=== PATIENT | male | born 1965 | race Caucasian/White ===

== ENCOUNTER 2017-03-09 23:44 | Inpatient (IN) ==
[2017-03-09] MEDS ORDERED: M.V.I.-12 10 ML, FOLIC ACID 1 MG, MAGNESIUM SULFATE 1 GM, THIAMINE 100 MG in NS 1,000 ML IV ONE (23:48)
[2017-03-09] MEDS ORDERED: NS 1,000 ML IV ONE (23:48)
[2017-03-10 00:06] LABS: MANUAL DIFF NEEDED? NO
[2017-03-10 00:07] LABS: BLOOD TYPE ARTERIAL; DRAW SITE L RADIAL; METHB 1.1 % (0.0-1.5); O2(CT) 18.8 mL/dL (15.0-23.0); PCO2(98.6) 35 mmHg (35-45); SAMPLE BLOOD; SAO2 88.6 % (95.0-100.0); pH(98.6) 7.39 (7.35-7.45)
--- NOTE | 2017-03-10 00:08 | EKG Report ---
Test Performed on : 03/09/2017 11:40:43 PM Test Reason : CHEST PAIN Blood Pressure : / mmHG Vent. Rate : 109 BPM Atrial Rate : 109 BPM P-R Int : 136 ms QRS Dur : 090 ms QT Int : 342 ms P-R-T Axes : 057 035 031 degrees QTc Int : 460 ms Sinus tachycardia. Possible Left atrial enlargement Borderline ECG When compared with ECG of 09-APR-2016 13:13, ST no longer elevated in Anterior leads QT has lengthened Unconfirmed Result
[2017-03-10 00:10] LABS: PO2(98.6) 48 mmHg (60-100)
[2017-03-10 00:11] LABS: ALLEN TEST YES; MODALITY CANNULA
[2017-03-10 00:15] LABS: BASO% 0.8 % (0.0-0.8); EOS% 1.5 % (0.0-10.0); HEMATOCRIT 48.7 % (42.0-52.0); HEMOGLOBIN 17.4 g/dL (14.0-18.0); IMM GRAN# 0.11 X1000 (0.0-0.04); IMM GRAN% 0.8 % (0.0-0.5); LYMPH# 4.45 X1000 (1.2-3.4); LYMPH% 34.1 % (20.5-51.1); MCH 29.9 PG (27-31); MCHC 35.7 g/dL (33-37); MCV 83.7 FL (81-99); MONO# 0.92 X1000 (0.11-0.59); MONO% 7.1 % (1.7-9.3); MPV 9.7 FL (7.4-10.4); NEUT% 55.7 % (42.2-75.2); PLT 331 X1000 (130-400); RBC 5.82 XMIL (4.7-6.1)
[2017-03-10 00:27] LABS: INR 0.88 (0.86-1.15); PROTIME 12.3 Seconds (12.1-15.5)
[2017-03-10 00:28] LABS: PTT PL 28.9 Seconds (22.6-43.9)
[2017-03-10] MEDS ORDERED: NS 1,000 ML IV ONE ×4 (00:45→09:11)
[2017-03-10 00:59] LABS: UR AMPHETAMINES QUAL NONE DETECTED (NONE DETECT); UR BARBITUATES QUAL NONE DETECTED (NONE DETECT); UR BENZODIAZEPIN QUAL NONE DETECTED (NONE DETECT); UR CANNABINOIDS QUAL NONE DETECTED (NONE DETECT); UR COCAINE QUAL NONE DETECTED (NONE DETECT); UR MDMA QUAL NONE DETECTED (NONE DETECT); UR METHADONE QUAL NONE DETECTED (NONE DETECT); UR METHAMPHETAMINE QUAL NONE DETECTED (NONE DETECT); UR OPIATES QUAL NONE DETECTED (NONE DETECT); UR OXYCODONE QUAL NONE DETECTED (NONE DETECT); UR PCP QUAL NONE DETECTED (NONE DETECT); UR TCA QUAL NONE DETECTED (NONE DETECT)
[2017-03-10 01:16] LABS: ACETONE SERUM NEGATIVE (NEGATIVE)
[2017-03-10 01:19] LABS: AGAP 21; ALBUMIN 4.3 g/dL (3.5-5.0); ALKALINE PHOSPHATASE 133 U/L (32-122); BUN 5 mg/dL (8-22); CALCIUM 9.4 mg/dL (8.8-10.2); CHLORIDE 94 mmol/L (98-107); CK PROFILE 62 U/L (24-204); COSMO 287; GOT 15 U/L (10-34); GPT 12 U/L (10-44); MAGNESIUM 2.1 mg/dL (1.5-2.7); POTASSIUM 3.9 mmol/L (3.5-5.1); SODIUM 134 mmol/L (136-145); TCO2 19 mmol/L (25-35); TOTAL PROTEIN 6.7 g/dL (6.3-8.3)
[2017-03-10] MEDS ORDERED: HUMULIN R IV ONE (01:22)
[2017-03-10 01:24] LABS: BILIRUBIN URINE NEGATIVE (NEGATIVE); BLOOD URINE NEGATIVE (NEGATIVE); CLARITY CLEAR (CLEAR); COLOR STRAW; LEUKOCYTES URINE NEGATIVE (NEGATIVE); NITRITE URINE NEGATIVE (NEGATIVE); PROTEIN URINE NEGATIVE (NEGATIVE); UROBILINOGEN URINE NORMAL
[2017-03-10 01:25] LABS: URINE CULTURE PL NEEDED? YES; URINE EPITHELIAL CELLS <10 /HPF (<10); URINE SOURCE CLEAN CATCH; URINE WBC NS /HPF (<10)
[2017-03-10 01:57] LABS: FREE T4 1.43 ng/dL (0.93-1.70)
--- NOTE | 2017-03-10 04:28 | PROVIDER DOCUMENTATION ---
This chart was entered by Gena Deras Scribe, acting as scribe for Bernardo Velazquez DO. HPI-Chest Pain - General Chief Complaint: Chest Pain Stated Complaint: chest pain, sob Time Seen by Provider: 03/09/17 23:45 Source: patient, EMS Allergies/Adverse Reactions: Patient Allergies Allergy/AdvReac Type Severity Reaction Status Date / Time No Known Allergies Allergy Verified 10/26/16 16:20 Home Medications: Home Medication List Medication Instructions Recorded Confirmed Last Taken Type Nitroglycerin 0.4 mg SL 2-4XDAY PRN PRN #20 01/23/16 04/06/16 1 Week Ago Rx tab.subl Aspirin [Ecotrin] 81 mg PO DAILY 02/17/16 04/06/16 03/09/16 History Gabapentin 300 mg PO BID 02/17/16 04/06/16 03/09/16 History Metoprolol Succinate E.r. [Toprol 25 mg PO QHS 02/17/16 04/06/16 03/08/16 21:00 History Xl] Sitagliptin Phos/Metformin HCl 1 each PO BID #0 02/17/16 04/06/16 03/09/16 Rx [Janumet 50-1,000 mg Tablet] Atorvastatin Calcium [Lipitor] 20 mg PO QHS 03/09/16 04/06/16 02/28/16 History Oxycodone HCl/Acetaminophen 1 each PO Q6-8H PRN PRN 03/09/16 04/06/16 Unknown History [Percocet 10-325 mg Tablet] Varenicline Tartrate [Chantix] 1 mg PO DIRECTED 03/09/16 04/06/16 Unknown History Colchicine 0.6 mg PO BID 04/05/16 04/05/16 Unknown History Glimepiride 4 mg PO DAILY 04/05/16 04/05/16 Unknown History Pantoprazole [Protonix] 40 mg PO DAILY 04/05/16 04/05/16 Unknown History Orphenadrine [Norflex] 100 mg PO BID #20 tablet 10/26/16 Unknown Rx - History of Present Illness-CP Nature of Presenting Problem: 51 Y/O M presents to the ER by the EMS with the complain of Chest pain and Shortness of Breath. Pt is drunk and is diabetic. Pt has has a Hx of Cardiac problems. Location: reports: central Onset/Duration: just prior to arrival Timing: still present Associated Symptoms: reports: shortness of breath Review of Systems - Adult - REVIEW OF SYSTEMS - ADULT Constitutional: denies: chills, fever Eyes: reports: no symptoms reported Ears, Nose, Mouth & Throat: reports: no symptoms reported Cardiovascular: reports: chest pain. denies: palpitations Respiratory: reports: shortness of breath. denies: cough Gastrointestinal: reports: no symptoms reported Genitourinary: reports: no symptoms reported Musculoskeletal: reports: no symptoms reported Integumentary: reports: no symptoms reported Neurological: reports: no symptoms reported Psychiatric: reports: no symptoms reported Endocrine: reports: no symptoms reported Hematologic/Lymphatic: reports: no symptoms reported Allergic/Immunologic: reports: no symptoms reported All Other Systems: Reviewed and Negative Past History - Adult - PAST MEDICAL HISTORY-ADULT Review of Records: reports: Old Records Reviewed, Nursing Assessment Review Major Childhood Illnesses: reports: denies history Cardiovascular: reports: angina, HTN, hyperlipidemia Respiratory: reports: denies history Gastrointestinal: reports: diverticulosis Obstetrical/Gynecological: reports: denies history Genitourinary: reports: denies history Musculoskeletal: reports: chronic pain, intervertebral disc disease, neck/back injury Neurological: reports: denies history Endocrine/Immune: reports: denies history Other Conditions: reports: denies history - PRIOR SURGERIES/PROCEDURES Surgical/Procedure History: reports: orthopedic (extremity) (bilateral hip) - PRIOR HOSPITALIZATIONS Prior Hospitalizations: reports: for other non-related - IMMUNIZATION STATUS Childhood Immunizations: See Nurse Assessment Flu Vaccine: See Nurse Assessment - FAMILY HISTORY Family History: reviewed, not pertinent - SOCIAL HISTORY Smoking: cigarettes, less than 1 pack/day Provider spent 3-5 mins advising pt. on dangers of tobacco.: Discussed manners to quit use, and f/u contacts for add'l counseling. Physical Exam-General - PHYSICAL EXAM-ADULT Initial Vital Signs Reviewed: Yes - CONSTITUTIONAL General Appearance: appears well, alert - HEAD, EARS, NOSE, MOUTH & THROAT HENMT: normal ENT inspection, TMs normal - NECK Neck: non-tender, full range of motion - RESPIRATORY Respiratory: no respiratory distress, wheezing - CARDIOVASCULAR Cardiovascular: no edema, tachycardia - MUSCULOSKELETAL Back Exam: no CVA tenderness, no vertebral tenderness - SKIN Integumentary: normal color, warm/dry - NEUROLOGIC Neurologic: grossly normal, no motor/sensory deficits - PSYCHIATRIC Psych/Mental Status: normal mood/affect, oriented x 3 Progress - PLAN OF CARE/RESULTS Progress/Plan/Lab Results: Vital Signs - 8 hr 03/09/17 23:50 03/10/17 01:15 03/10/17 03:23 Temperature 97.6 F 97.6 F Pulse Rate 106 H 93 H 85 Respiratory Rate 13 26 H 20 Blood Pressure 149/86 139/81 113/66 O2 Sat by Pulse Oximetry 90 L 90 L 97 Laboratory Results - last 24 hr 03/09/17 03/09/17 03/09/17 00:00 00:00 00:00 WBC RBC Hgb Hct MCV MCH MCHC RDW Std Deviation Plt Count MPV Immature Gran % (Auto) Neut % (Auto) Lymph % (Auto) Christian % (Auto) Eos % (Auto) Baso % (Auto) Immature Gran # (Auto) Neut # (Auto) Lymph # (Auto) Christian # (Auto) Eos # (Auto) Baso # (Auto) PT INR APTT (Factor Assay) D-Dimer Specimen Type Sample Site pH pCO2 pO2 HCO3 Base Excess Oxyhemoglobin ABG O2 Sat (Calculated) ABG O2 Saturation ABG Carboxyhemoglobin ABG Methemoglobin Joseph Test A-a O2 Difference Total Hemoglobin Lactate Liter Flow Blood Gas Modality FiO2 % Sodium 134 L Potassium 3.9 Chloride 94 L Carbon Dioxide 19 L Anion Gap 21 BUN 5 L Creatinine 0.8 Estimated GFR/1.73 m2 > 60 BUN/Creatinine Ratio 6 Glucose 470 H* POC Glucose Calculated Osmolality 287 Calcium 9.4 Phosphorus Magnesium 2.1 Total Bilirubin 0.40 AST 15 ALT 12 Alkaline Phosphatase 133 H Creatine Kinase 62 Troponin T < 0.010 Uln-[id number] Pept 12 Total Protein 6.7 Albumin 4.3 Globulin 2.0 Albumin/Globulin Ratio 2.0 TSH Free T4 Urine Source Urine Color Urine Clarity Urine pH Ur Specific [place] Urine Protein Urine Ketones Urine Blood Urine Nitrite Urine Bilirubin Urine Urobilinogen Urine Microscopic RBC Urine WBC Urine Microscopic WBC Ur Epithelial Cells Urine Bacteria Urine Glucose Urine Opiates Screen Ur Oxycodone Screen Urine Methadone Screen Ur Barbituates Screen Ur Tricyclics Screen Ur Phencyclidine Scrn Ur Amphetamines Screen U Methamphetamines Scrn Urine MDMA Screen U Benzodiazepines Scrn Urine Cocaine Screen U Cannabinoids Screen Plasma/Serum Ethyl Alc Acetone Level 03/09/17 03/09/17 03/09/17 00:00 00:00 00:00 WBC 13.04 H RBC 5.82 Hgb 17.4 Hct 48.7 MCV 83.7 MCH 29.9 MCHC 35.7 RDW Std Deviation 14.0 Plt Count 331 MPV 9.7 Immature Gran % (Auto) 0.8 H Neut % (Auto) 55.7 Lymph % (Auto) 34.1 Christian % (Auto) 7.1 Eos % (Auto) 1.5 Baso % (Auto) 0.8 Immature Gran # (Auto) 0.11 H Neut # (Auto) 7.25 H Lymph # (Auto) 4.45 H Christian # (Auto) 0.92 H Eos # (Auto) 0.20 Baso # (Auto) 0.11 PT 12.3 INR 0.88 APTT (Factor Assay) 28.9 D-Dimer < 0.22 L Specimen Type Sample Site pH pCO2 pO2 HCO3 Base Excess Oxyhemoglobin ABG O2 Sat (Calculated) ABG O2 Saturation ABG Carboxyhemoglobin ABG Methemoglobin Joseph Test A-a O2 Difference Total Hemoglobin Lactate Liter Flow Blood Gas Modality FiO2 % Sodium Potassium Chloride Carbon Dioxide Anion Gap BUN Creatinine Estimated GFR/1.73 m2 BUN/Creatinine Ratio Glucose POC Glucose Calculated Osmolality Calcium Phosphorus Magnesium Total Bilirubin AST ALT Alkaline Phosphatase Creatine Kinase Troponin T Ugu-E-Vtgblnimzis Pept Total Protein Albumin Globulin Albumin/Globulin Ratio TSH 1.02 Free T4 1.43 Urine Source Urine Color Urine Clarity Urine pH Ur Specific [place] Urine Protein Urine Ketones Urine Blood Urine Nitrite Urine Bilirubin Urine Urobilinogen Urine Microscopic RBC Urine WBC Urine Microscopic WBC Ur Epithelial Cells Urine Bacteria Urine Glucose Urine Opiates Screen Ur Oxycodone Screen Urine Methadone Screen Ur Barbituates Screen Ur Tricyclics Screen Ur Phencyclidine Scrn Ur Amphetamines Screen U Methamphetamines Scrn Urine MDMA Screen U Benzodiazepines Scrn Urine Cocaine Screen U Cannabinoids Screen Plasma/Serum Ethyl Alc Acetone Level 03/09/17 03/09/17 03/09/17 00:00 00:00 00:13 WBC RBC Hgb Hct MCV MCH MCHC RDW Std Deviation Plt Count MPV Immature Gran % (Auto) Neut % (Auto) Lymph % (Auto) Christian % (Auto) Eos % (Auto) Baso % (Auto) Immature Gran # (Auto) Neut # (Auto) Lymph # (Auto) Christian # (Auto) Eos # (Auto) Baso # (Auto) PT INR APTT (Factor Assay) D-Dimer Specimen Type Sample Site pH pCO2 pO2 HCO3 Base Excess Oxyhemoglobin ABG O2 Sat (Calculated) ABG O2 Saturation ABG Carboxyhemoglobin ABG Methemoglobin Joseph Test A-a O2 Difference Total Hemoglobin Lactate Liter Flow Blood Gas Modality FiO2 % Sodium Potassium Chloride Carbon Dioxide Anion Gap BUN Creatinine Estimated GFR/1.73 m2 BUN/Creatinine Ratio Glucose POC Glucose Calculated Osmolality Calcium Phosphorus 4.5 Magnesium Total Bilirubin AST ALT Alkaline Phosphatase Creatine Kinase Troponin T Aix-G-Zoxcftvumgy Pept Total Protein Albumin Globulin Albumin/Globulin Ratio TSH Free T4 Urine Source CLEAN CATCH Urine Color STRAW Urine Clarity CLEAR Urine pH 7.0 Ur Specific [place] 1.000 Urine Protein NEGATIVE Urine Ketones TRACE Urine Blood NEGATIVE Urine Nitrite NEGATIVE Urine Bilirubin NEGATIVE Urine Urobilinogen NORMAL Urine Microscopic RBC Not Reportable Urine WBC NEGATIVE Urine Microscopic WBC NS Ur Epithelial Cells <10 Urine Bacteria NEGATIVE Urine Glucose 3+(500 mg/dL) A Urine Opiates Screen Ur Oxycodone Screen Urine Methadone Screen Ur Barbituates Screen Ur Tricyclics Screen Ur Phencyclidine Scrn Ur Amphetamines Screen U Methamphetamines Scrn Urine MDMA Screen U Benzodiazepines Scrn Urine Cocaine Screen U Cannabinoids Screen Plasma/Serum Ethyl Alc 200 H Acetone Level NEGATIVE 03/09/17 03/09/17 03/10/17 00:13 23:50 00:10 WBC RBC Hgb Hct MCV MCH MCHC RDW Std Deviation Plt Count MPV Immature Gran % (Auto) Neut % (Auto) Lymph % (Auto) Christian % (Auto) Eos % (Auto) Baso % (Auto) Immature Gran # (Auto) Neut # (Auto) Lymph # (Auto) Christian # (Auto) Eos # (Auto) Baso # (Auto) PT INR APTT (Factor Assay) D-Dimer Specimen Type ARTERIAL Sample Site L RADIAL pH 7.39 pCO2 35 pO2 48 L* HCO3 21.9 Base Excess -3.0 Oxyhemoglobin 79.1 L* ABG O2 Sat (Calculated) 18.8 ABG O2 Saturation 88.6 L ABG Carboxyhemoglobin 9.70 H* ABG Methemoglobin 1.1 Joseph Test YES A-a O2 Difference 136.0 Total Hemoglobin 17.0 Lactate 4.30 H Liter Flow 3.0 Blood Gas Modality CANNULA FiO2 % 32.0 Sodium Potassium Chloride Carbon Dioxide Anion Gap BUN Creatinine Estimated GFR/1.73 m2 BUN/Creatinine Ratio Glucose POC Glucose 364 H D Calculated Osmolality Calcium Phosphorus Magnesium Total Bilirubin AST ALT Alkaline Phosphatase Creatine Kinase Troponin T Uvk-[id number]-Azmrlyekqpq Pept Total Protein Albumin Globulin Albumin/Globulin Ratio TSH Free T4 Urine Source Urine Color Urine Clarity Urine pH Ur Specific [place] Urine Protein Urine Ketones Urine Blood Urine Nitrite Urine Bilirubin Urine Urobilinogen Urine Microscopic RBC Urine WBC Urine Microscopic WBC Ur Epithelial Cells Urine Bacteria Urine Glucose Urine Opiates Screen NONE DETECTED Ur Oxycodone Screen NONE DETECTED Urine Methadone Screen NONE DETECTED Ur Barbituates Screen NONE DETECTED Ur Tricyclics Screen NONE DETECTED Ur Phencyclidine Scrn NONE DETECTED Ur Amphetamines Screen NONE DETECTED U Methamphetamines Scrn NONE DETECTED Urine MDMA Screen NONE DETECTED U Benzodiazepines Scrn NONE DETECTED Urine Cocaine Screen NONE DETECTED U Cannabinoids Screen NONE DETECTED Plasma/Serum Ethyl Alc Acetone Level 03/10/17 04:09 WBC RBC Hgb Hct MCV MCH MCHC RDW Std Deviation Plt Count MPV Immature Gran % (Auto) Neut % (Auto) Lymph % (Auto) Christian % (Auto) Eos % (Auto) Baso % (Auto) Immature Gran # (Auto) Neut # (Auto) Lymph # (Auto) Christian # (Auto) Eos # (Auto) Baso # (Auto) PT INR APTT (Factor Assay) D-Dimer Specimen Type Sample Site pH pCO2 pO2 HCO3 Base Excess Oxyhemoglobin ABG O2 Sat (Calculated) ABG O2 Saturation ABG Carboxyhemoglobin ABG Methemoglobin Joseph Test A-a O2 Difference Total Hemoglobin Lactate Liter Flow Blood Gas Modality FiO2 % Sodium Potassium Chloride Carbon Dioxide Anion Gap BUN Creatinine Estimated GFR/1.73 m2 BUN/Creatinine Ratio Glucose POC Glucose 256 H Calculated Osmolality Calcium Phosphorus Magnesium Total Bilirubin AST ALT Alkaline Phosphatase Creatine Kinase Troponin T Hdx-J-Sbhdaxhmraj Pept Total Protein Albumin Globulin Albumin/Globulin Ratio TSH Free T4 Urine Source Urine Color Urine Clarity Urine pH Ur Specific [place] Urine Protein Urine Ketones Urine Blood Urine Nitrite Urine Bilirubin Urine Urobilinogen Urine Microscopic RBC Urine WBC Urine Microscopic WBC Ur Epithelial Cells Urine Bacteria Urine Glucose Urine Opiates Screen Ur Oxycodone Screen Urine Methadone Screen Ur Barbituates Screen Ur Tricyclics Screen Ur Phencyclidine Scrn Ur Amphetamines Screen U Methamphetamines Scrn Urine MDMA Screen U Benzodiazepines Scrn Urine Cocaine Screen U Cannabinoids Screen Plasma/Serum Ethyl Alc Acetone Level Orders Category Date Time Status Admit - [facility] Routine AdmDCTranf 03/10/17 04:35 Ordered Activity - Strict Bedrest ORDERED Care 03/10/17 04:35 Active Call Admitting on Arrival AT ADMISSION Care 03/10/17 04:35 Active Cardiac Monitoring DIRECTED Care 03/09/17 23:46 Active Diaz Cath Insertion ORDERED Care 03/09/17 23:49 Active Neurological Check Q4H Care 03/10/17 04:35 Active Saline Loc DIRECTED Care 03/10/17 04:35 Active Saline Loc NOW Care 03/09/17 23:46 Active Vital Signs Order ARRIVAL TO ROOM Care 03/10/17 04:35 Active NPO Diet 03/10/17 04:36 Active CHEST-2 VIEWS [RAD] Stat Exams 03/10/17 00:00 Taken HEAD/C-SPINE W/O CONTRAST [CT] Stat Exams 03/10/17 00:00 Taken ABG [RESP] Routine Lab 03/09/17 23:50 Completed ACETONE SERUM [CHEM] Stat Lab 03/09/17 00:00 Completed ALCOHOL BLOOD Stat Lab 03/09/17 00:00 Completed CBC WITH ELECTRONIC DIFF [HEME] Stat Lab 03/09/17 00:00 Completed CK PROFILE [SP CHEM] Stat Lab 03/09/17 00:00 Completed COMPREHENSIVE METABOLIC PANEL [CHEM] Stat Lab 03/09/17 00:00 Completed D-DIMER PL [COAG] Stat Lab 03/09/17 00:00 Completed FREE T4 Stat Lab 03/09/17 00:00 Results MAGNESIUM [CHEM] Stat Lab 03/09/17 00:00 Completed PRO B-NATRIURETIC PEPTIDE Stat Lab 03/09/17 00:00 Completed [address]IME WITH INR PL [COAG] Stat Lab 03/09/17 00:[address] [COAG] Stat Lab 03/09/17 00:00 Completed TROPONIN T Q8HR Lab 03/10/17 05:00 Ordered TROPONIN T Q8HR Lab 03/10/17 13:00 Ordered TROPONIN T Q8HR Lab 03/10/17 21:00 Ordered TROPONIN T Stat Lab 03/09/17 00:00 Completed TSH Stat Lab 03/09/17 00:[address] W/POSS RFLX CULT [URINALYSIS] Stat Lab 03/09/17 00:13 Completed URINE CULTURE [RM] Routine Lab 03/10/17 01:26 Ordered URINE DRUG SCREEN PL Stat Lab 03/09/17 00:13 Completed VITAMIN B12 Stat Lab 03/09/17 00:00 Results phos [PHOSPHORUS] [CHEM] Stat Lab 03/09/17 00:00 Completed 0.9% Sodium Chloride Inj [Ns] 1,000 ml Med 03/10/17 04:35 Active IV 125 mls/hr 0.9% Sodium Chloride Inj [Ns] 1,000 ml Med 03/09/17 23:48 Discontinued IV 999 mls/hr 0.9% Sodium Chloride Inj [Ns] 1,000 ml Med 03/10/17 00:45 Discontinued IV 999 mls/hr 0.9% Sodium Chloride Inj [Ns] 99 ml Med 03/10/17 04:45 Active Insulin Human Regular [Humulin R] 100 unit IV As Directed Insulin Human Regular [Humulin R] Med 03/10/17 01:22 Discontinued 10 unit IV NOW ONE Morphine Med 03/10/17 04:35 Active 2 mg IV Q2H PRN PRN Mvi [M.v.i.-12] 10 ml Med 03/09/17 23:48 Discontinued Folic Acid 1 mg Magnesium Sulfate 1 gm Thiamine 100 mg 0.9% Sodium Chloride Inj [Ns] 1,000 ml IV NOW Ondansetron [Zofran] Med 03/10/17 04:35 Active 4 mg IV Q4H PRN PRN Oxygen Device Routine Oth 03/10/17 04:35 Active Telemetry [OM.EQ] Routine Oth 03/10/17 04:35 Active EKG [EKG] Stat Ther 03/09/17 23:46 Draft Transfer/Admit Order [TRANSFER] Routine Transfer 03/10/17 04:37 Ordered Result Diagrams: 03/09/17 00:00 03/09/17 00:00 - EKG 1 Time of EKG reading by physician:: 23:40 EKG Read and Signed by:: Bernardo Velazquez EKG Interpretation (*Must complete 3 of following elements*): Abnormal ( Borderline ECG) Rate: 109 Rhythm: Sinus Tachycardia Comments: Possible Left atrial Enlargment, Borderline ECG - CONSULTS/PCP/HOSPITALIST Notification #1 *Consult/PCP/Hospitalist*: Dr. Serra Time Discussed: 04:23 Reason/Comments: Dr. Velazquez consulted with Dr. Serra about patient Departure - Departure Time of Disposition Decision: 04:23 DIAGNOSIS: Chest pain, Alcohol intoxication, Hyperglycemia Disposition: ADMITTED INPATIENT 09 Certified Medical Emergency: Emergent Condition: Good This chart was documented by the indicated scribe, (Gena Deras Scribe) and accurately reflects the services I performed and decisions made by , Bernardo Velazquez DO, as attested by the provider's signature.
[2017-03-10] MEDS ORDERED: MORPHINE IV PRN (04:35)
[2017-03-10] MEDS ORDERED: ZOFRAN IV PRN (04:35)
[2017-03-10] MEDS ORDERED: HUMULIN R 100 UNIT in NS 99 ML IV SCH (04:45)
[2017-03-10] MEDS ORDERED: HUMULIN R DOSE (PARKWAY) ONE (05:41)
[2017-03-10] MEDS ORDERED: NS 100 ML ONE (05:55)
[2017-03-10 07:24] LABS: MANUAL DIFF NEEDED? NO
[2017-03-10 07:25] LABS: BASO% 0.3 % (0.0-0.8); EOS# 0.22 X1000 (0.0-0.7); EOS% 1.2 % (0.0-10.0); HEMATOCRIT 46.8 % (42.0-52.0); IMM GRAN# 0.09 X1000 (0.0-0.04); IMM GRAN% 0.5 % (0.0-0.5); LYMPH# 3.02 X1000 (1.2-3.4); LYMPH% 16.7 % (20.5-51.1); MCH 29.1 PG (27-31); MCHC 34.2 g/dL (33-37); MCV 85.2 FL (81-99); MONO# 0.79 X1000 (0.11-0.59); MONO% 4.4 % (1.7-9.3); MPV 10.3 FL (7.4-10.4); NEUT% 76.9 % (42.2-75.2); PLT 322 X1000 (130-400); RBC 5.49 XMIL (4.7-6.1)
[2017-03-10 07:35] LABS: AGAP 16; ALBUMIN 3.8 g/dL (3.5-5.0); ALKALINE PHOSPHATASE 104 U/L (32-122); BUN 7 mg/dL (8-22); CALCIUM 8.3 mg/dL (8.8-10.2); CHLORIDE 101 mmol/L (98-107); COSMO 284; GOT 11 U/L (10-34); GPT 10 U/L (10-44); POTASSIUM 3.9 mmol/L (3.5-5.1); SODIUM 139 mmol/L (136-145); TCO2 22 mmol/L (25-35); TOTAL PROTEIN 5.8 g/dL (6.3-8.3)
[2017-03-10] MEDS ORDERED: ATIVAN IV PRN (08:14)
[2017-03-10] MEDS: THIAMINE 100 MG in NS 50 ML IV SCH (08:39)
[2017-03-10] MEDS: FOLIC ACID 1 MG in NS 50.0 ML IV SCH (08:39)
[2017-03-10] MEDS ORDERED: SODIUM CHLORIDE 0.9% INJ SCH (08:45)
--- NOTE | 2017-03-10 08:58 | EKG Report ---
Test Performed on : 03/10/2017 08:50:04 AM Test Reason : Chest pain Blood Pressure : / mmHG Vent. Rate : 097 BPM Atrial Rate : 097 BPM P-R Int : 132 ms QRS Dur : 090 ms QT Int : 338 ms P-R-T Axes : 060 031 060 degrees QTc Int : 429 ms Normal sinus rhythm. Possible Left atrial enlargement Borderline ECG When compared with ECG of 09-MAR-2017 23:40, Non-specific change in ST segment in Anterior leads Confirmed by Tomas Bentley MD ([id number]) on 03/20/2017 10:30:48 PM
[2017-03-10] MEDS: PROTONIX IV SCH (09:26)
[2017-03-10] MEDS: ZOSYN 3.375 GM/NS 3.375 GM/50 ML IVPB IV SCH ×3 (09:27→20:35)
--- NOTE | 2017-03-10 09:39 | Diag Imaging Result Document ---
PROCEDURE NAME: HEAD/C-SPINE W/O CONTRAST - 03/10/2017 CT HEAD WITHOUT CONTRAST: TECHNIQUE: A dose reduction protocol was used. Compared with 04/08/2016. FINDINGS: There are artifacts from motion which mildly limit detail. There is no evidence of intracranial hemorrhage, mass effect, midline shift, or hydrocephalus. There is no evidence of infarct although acute infarcts may not be immediately visible. There is no skull fracture. IMPRESSION:No visible acute process. No evidence of intracranial injury. CT CERVICAL SPINE WITHOUT CONTRAST: TECHNIQUE: A dose reduction protocol was used. Axial and reformatted sagittal and coronal images are obtained. No comparison exam. FINDINGS: There is incomplete ossification of the posterior arch of C1 at the midline. This has smooth configuration, compatible with congenital variant or anomaly. There is degenerative disk disease with large anterior osteophytes at C3-4. There are mild degenerative changes elsewhere. There is ligamentous ossification noted posterior to the spinous process of T1. There is no fracture identified. There is no subluxation seen. There is no precervical soft- tissue swelling identified. IMPRESSION: 1. No evidence of fracture or subluxation. 2. Degenerative changes with large anterior osteophytes at C3-4. A [employer] physician provided preliminary results at 3:05 a.m. on 03/10/2017. MTDD
--- NOTE | 2017-03-10 09:42 | Diag Imaging Result Document ---
PROCEDURE NAME: CHEST-2 VIEWS - 03/10/2017 CHEST 2 VIEWS: Compared with 04/08/2016. FINDINGS: There are ill-defined infiltrates or atelectasis at the bilateral lung bases, primarily at the lower lobes. The possibility of bronchopneumonia cannot be excluded. The upper lungs appear clear. There is no substantial pleural effusion, or pneumothorax identified. IMPRESSION: Ill-defined infiltrates or atelectasis at bilateral bases, primarily at the lower lobes. Bronchopneumonia cannot be excluded.
--- NOTE | 2017-03-10 10:00 | Diag Imaging Result Document ---
PROCEDURE NAME: CHEST-PORTABLE - 03/10/2017 PORTABLE CHEST: Compared with 03/10/2017. FINDINGS: There has been mild decrease in basilar infiltrates or atelectasis. There are no other interval changes identified. There is no pneumothorax seen. Heart size is normal. IMPRESSION: Mild decrease in basilar infiltrates or atelectasis.
--- NOTE | 2017-03-10 10:22 | HISTORY AND PHYSICAL ---
CHIEF COMPLAINT: This patient came to the emergency department complaining of chest pain. HISTORY OF PRESENT ILLNESS: This is a 51-year-old, male with a past medical history of diabetes, degenerative disks at the level of L4 and L5, apparently disabled for this condition and also for mental status changes. Came to the emergency department yesterday during the night with the chief complaint of chest pain. As per the patient, he left his house at 3 p.m. and he went to a concert. He was drinking beer, about 18 cans. Also, he was smoking. After the concert, he went to eat and after eating, he started having chest pain at the level of the sternal area that was sharp. Also, he was complaining of palpitations. This is why they decided to come to the emergency department. In the emergency department, they found out that this patient has a leukocytosis of 13. Blood gas with a PO2 of 48 and lactate of 4.3. Also, the blood sugar was 470 with an anion gap of 21. Also, this patient was dehydrated with a plasma/serum ethyl alcohol of 200. After evaluation, we decided to admit this patient to the ICU. He was given fluid and he is also receiving an insulin drip. This patient is re-evaluated in the morning and I checked the x- rays. It looks like there is an infiltrate in the left lower lung. This patient is having some chills and severe weakness. The leukocytes increased from 13-18. He was placed on antibiotics. I already stopped the insulin drip and I am going to give him 2 more liters of normal saline. DVT prophylaxis with Lovenox and GI prophylaxis with pantoprazole. I will order a new EKG and also a new x-ray. I will continue to monitor this patient in the ICU. REVIEW OF SYSTEMS: General: Generalized weakness. The 14 points of review of systems were reviewed. All of them were negative except as per HPI. PAST MEDICAL HISTORY: Diabetes, degenerative disks at the level of L4 and L5, and as per the patient, altered mental status. FAMILY HISTORY: Mother with lymphoma and diabetes. Brother secondary to an RI. Father recently had a surgery secondary to coronary artery disease, CABG. SOCIAL HISTORY: He is still smoking around 1-1/2 packs daily. He started smoking this amount at the age of 21 but he says that he started smoking a less amount before that, since age 11. He also stated that he drinks about 8-9 beers twice a week and sometimes he stops for 1 or 2 weeks and nothing happens. No signs of withdrawal. He is disabled. No drugs. ALLERGIES: No known allergies. PHYSICAL EXAMINATION: VITAL SIGNS: Temperature 99 degrees, pulse 85, respiratory rate 20, blood pressure 113/60, O2 saturation 98 on a nonrebreathing mask. HEENT: Head normocephalic. No trauma. PERRLA. Mucosa is dry. NECK: Supple. No JVD. No masses. Central trachea. LUNGS: Decreased breath sounds at the bases with bilateral rales and rhonchi at the level of the left lower lung. CARDIOVASCULAR: RRR. No murmurs. ABDOMEN: Soft, nontender, nondistended. Left lower quadrant pain. No rebound. No signs of peritoneal irritation. EXTREMITIES: No edema. No clubbing. No cyanosis. NEUROLOGICAL EXAMINATION: The patient is alert and oriented x3. No focal neurological deficits. LABORATORY DATA: The lab work was repeated today, 03/10/2017. WBC 18.1, hemoglobin 16, hematocrit 46.8, platelets 322,000. Sodium 139, potassium 3.9, chloride 101, bicarbonate 22, BUN 7, creatinine 0.7, glucose 255, calcium 8.3. Troponins negative x2. Albumin 3.8. ASSESSMENT AND PLAN: 1. Chest pain. Cardiac enzymes and electrocardiograms so far negative. I repeated the electrocardiogram this morning and we will continue monitoring the troponins. At this moment, this patient is still complaining of chest pain but compared with the admission, it is much better. Probably this could be related to an infectious process. 2. Alcohol intoxication. This patient has been placed on multivitamins including thiamine, folic acid. Also, this patient is going to get fluids. We will continue to monitor this patient in the intensive care unit. I have placed this patient on Ativan as needed in case of withdrawal or delirium tremens. 3. Dehydration. We will continue with the intravenous fluids. 4. Hyperglycemia with diabetic ketoacidosis. Probably, this is multifactorial. His blood sugar was 470. Anion gap at the moment of admission was 21. He was placed on insulin drip. I already stopped that treatment. I started this patient on a sliding scale and more fluids. I am going to monitor his blood sugar for the next 24 hours. Probably, this patient needs a long-acting insulin. 5. Type 2 diabetes. This patient is not taking any medication for this. As per the records, he should be on glimepiride, sitagliptin, and metformin but as per the patient, he does not have any insurance and he cannot afford these medications. 6. Medications. This patient is currently not taking any medication at home. cc: Js Carrion MD
[2017-03-10] MEDS: DUONEB (A & A) INH SCH ×3 (11:42→20:21)
[2017-03-10] MEDS: NS 1,000 ML IV SCH ×2 (13:37→23:40)
[2017-03-10] MEDS: HUMULIN R DOSE (PARKWAY) SUBQ SCH ×3 (13:41→20:35)
[2017-03-10 14:13] LABS: AGAP 10; BUN 9 mg/dL (8-22); CALCIUM 8.3 mg/dL (8.8-10.2); CHLORIDE 103 mmol/L (98-107); COSMO 278; POTASSIUM 4.1 mmol/L (3.5-5.1); SODIUM 135 mmol/L (136-145); TCO2 22 mmol/L (25-35)
[2017-03-10] MEDS: MORPHINE IV PRN (15:42)
[2017-03-10 17:53] LABS: AGAP 10; BUN 8 mg/dL (8-22); CHLORIDE 103 mmol/L (98-107); COSMO 282; POTASSIUM 4.3 mmol/L (3.5-5.1); SODIUM 135 mmol/L (136-145); TCO2 22 mmol/L (25-35)
[2017-03-10] MEDS ORDERED: LIPITOR PO SCH (21:00)
[2017-03-11] MEDS: DUONEB (A & A) INH SCH ×6 (00:09→19:35)
[2017-03-11] MEDS: ZOSYN 3.375 GM/NS 3.375 GM/50 ML IVPB IV SCH ×4 (02:22→19:58)
[2017-03-11 06:05] LABS: MANUAL DIFF NEEDED? NO
[2017-03-11] MEDS: HUMULIN R DOSE (PARKWAY) SUBQ SCH ×4 (06:15→20:09)
[2017-03-11 06:28] LABS: BASO% 0.4 % (0.0-0.8); EOS% 2.6 % (0.0-10.0); HEMATOCRIT 42.5 % (42.0-52.0); HEMOGLOBIN 14.3 g/dL (14.0-18.0); IMM GRAN# 0.07 X1000 (0.0-0.04); IMM GRAN% 0.6 % (0.0-0.5); LYMPH# 3.15 X1000 (1.2-3.4); LYMPH% 26.9 % (20.5-51.1); MCH 29.1 PG (27-31); MCHC 33.6 g/dL (33-37); MCV 86.6 FL (81-99); MONO# 0.82 X1000 (0.11-0.59); MPV 10.2 FL (7.4-10.4); NEUT% 62.5 % (42.2-75.2); PLT 281 X1000 (130-400); RBC 4.91 XMIL (4.7-6.1)
[2017-03-11 06:30] LABS: HEMOGLOBIN A1C 10.6 % (4.8-6.0)
[2017-03-11 06:35] LABS: AGAP 11; BUN 11 mg/dL (8-22); CALCIUM 8.1 mg/dL (8.8-10.2); CHLORIDE 105 mmol/L (98-107); COSMO 285; POTASSIUM 3.9 mmol/L (3.5-5.1); SODIUM 139 mmol/L (136-145); TCO2 23 mmol/L (25-35)
[2017-03-11] MEDS: LOVENOX SUBQ SCH (09:42)
[2017-03-11] MEDS: PROTONIX IV SCH (09:43)
[2017-03-11] MEDS: FOLIC ACID 1 MG in NS 50.0 ML IV SCH (09:43)
[2017-03-11] MEDS: THIAMINE 100 MG in NS 50 ML IV SCH (10:00)
[2017-03-11] MEDS: NS 1,000 ML IV SCH (12:59)
[2017-03-11] MEDS ORDERED: NITROGLYCERIN SL PRN (14:43)
[2017-03-11] MEDS ORDERED: PERCOCET-10 PO PRN (14:43)
--- NOTE | 2017-03-11 16:00 | PROGRESS NOTE ---
DATE: 03/11/2017 SUBJECTIVE: The patient denies having any chest pain but he does not feel very well. He stated that he feels poorly. OBJECTIVE: Vital signs: Blood pressure 129/75, pulse of 74, respirations 16, temperature 97.5, saturation 100% on room air. General: Well-developed, well-nourished white male, in no acute distress. HEENT: Anicteric sclerae. Clear conjunctivae. Neck: Supple. No JVD. No bruits. Cardiovascular: S1, S2. Normal rate and rhythm. No murmur, rubs, or gallops. Pulmonary: Clear to auscultation bilaterally with occasional wheezes. Abdomen: Soft, nontender, nondistended. Normoactive bowel sounds. Musculoskeletal: No clubbing, cyanosis, or edema. LABORATORY: Sodium 139, potassium 3.9, chloride 105, bicarb 23, BUN 11, creatinine 0.6, glucose 237, calcium 8.1. Troponin 3 sets were negative. ASSESSMENT AND PLAN: This is a 51-year-old white male, noncompliant patient admitted to the hospital for chest pain. 1. Chest pain. Appears to be atypical, resolved. Troponin has been negative. EKG showed no ST changes. 2. Uncontrolled diabetes. His A1c is above 10. We started back on his home medication. Will transfer to the floor. We will get social services specialist to help to see if we can get him his medications. He does not take any medication for almost a year because he could not afford it, however, he can still afford beer and cigarettes. 3. Intoxication, resolved. The patient drank over 20 beers on Saturday night at a concert. 4. Hypertension. Blood pressure is much better controlled now that we restarted him back on his home medications. We will continue metoprolol for now. 5. Coronary artery disease and hyperlipidemia. We will continue Lipitor and aspirin. 6. Peripheral neuropathy. Continue Neurontin. 7. Code Status: The patient is a full code. 8. Deep vein thrombosis prophylaxis, Lovenox.
[2017-03-11] MEDS: GLUCOPHAGE PO SCH (17:02)
[2017-03-11] MEDS: JANUVIA PO SCH (17:02)
[2017-03-11] MEDS ORDERED: CHANTIX PO SCH (18:00)
[2017-03-11] MEDS: MORPHINE IV PRN (19:58)
[2017-03-11] MEDS: NEURONTIN PO SCH (20:10)
[2017-03-11] MEDS: COLCRYS PO SCH (20:11)
[2017-03-11] MEDS ORDERED: TOPROL XL PO SCH (21:00)
[2017-03-11] MEDS ORDERED: LIPITOR PO SCH (21:00)
[2017-03-11] MEDS ORDERED: NON-FORMULARY MED (Sitagliptin Phos/Metformin Hcl [Janumet 50-1,000 Mg Tablet] 1 EACH) PO SCH (21:00)
[2017-03-11] MEDS: NORFLEX PO SCH (22:07)
[2017-03-12] MEDS: DUONEB (A & A) INH SCH ×4 (00:06→11:50)
[2017-03-12] MEDS: NS 1,000 ML IV SCH (01:47)
[2017-03-12] MEDS: ZOSYN 3.375 GM/NS 3.375 GM/50 ML IVPB IV SCH ×2 (01:47→09:02)
[2017-03-12] MEDS: HUMULIN R DOSE (PARKWAY) SUBQ SCH (06:32)
[2017-03-12] MEDS ORDERED: PROTONIX PO SCH (07:00)
[2017-03-12] MEDS ORDERED: AMARYL PO SCH (08:00)
[2017-03-12] MEDS ORDERED: ASPIRIN EC PO SCH (09:00)
[2017-03-12] MEDS: COLCRYS PO SCH (09:00)
[2017-03-12] MEDS: NEURONTIN PO SCH (09:01)
[2017-03-12] MEDS: LOVENOX SUBQ SCH (09:01)
[2017-03-12] MEDS: JANUVIA PO SCH (09:01)
[2017-03-12] MEDS: GLUCOPHAGE PO SCH (09:01)
[2017-03-12] MEDS: FOLIC ACID 1 MG in NS 50.0 ML IV SCH (09:02)
[2017-03-12] MEDS: THIAMINE 100 MG in NS 50 ML IV SCH (09:02)
[2017-03-12] MEDS: NORFLEX PO SCH (11:38)
[2017-03-12] MEDS: HUMULIN R (PARKWAY) SUBQ SCH ×2 (11:41→11:43)
[2017-03-12 11:46] VITALS: BP 127/81
--- NOTE | 2017-03-13 07:21 | DISCHARGE SUMMARY ---
ADMISSION DATE: 03/10/2017 DISCHARGE DATE: 03/12/2017 PRIMARY CARE PHYSICIAN: None. DISCHARGE DIAGNOSES: 1. Alcohol intoxication. 2. Noncompliant to medical treatment. 3. Uncontrolled diabetes. 4. Uncontrolled hypertension. 5. History of coronary artery disease. 6. Hyperlipidemia. 7. Peripheral neuropathy. DISCHARGE MEDICATIONS: 1. Aspirin 81 mg p.o. daily. 2. Zocor 10 mg p.o. at bedtime. 3. Nitroglycerin 0.4 mg p.r.n. for chest pain. 4. Metoprolol 25 mg p.o. b.i.d. 5. Metformin 1000 mg p.o. b.i.d. 6. Amaryl 4 mg p.o. daily. 7. Gabapentin 300 mg p.o. b.i.d. CONSULTATION: None. PROCEDURES: None. SIGNIFICANT LABORATORIES AND IMAGING: At discharge, his white count 11.7, hemoglobin 14.3, hematocrit of 42.5, platelets of 281,000. Chemistry: Sodium 139, potassium 3.9, chloride 105, bicarb 23, BUN 11, creatinine 0.6, glucose of 237. His A1c is seen above 10, last is 10.6. Troponins, 3 sets have been negative. HOSPITAL COURSE: The patient is a 51-year-old white male with a past medical history significant for diabetes, hypertension and coronary artery disease, admitted to the hospital for chief complaint chest pain. The patient was at a concert partying and drinking about 18 cans of beer and afterward he went mud riding. He denies having any trauma but came in with chest pain. He has a history of coronary artery disease and was admitted to our service for alcohol intoxication and chest pain. Troponin 3 sets were negative. EKG showed no ST changes. The patient is doing much better now he is sober. Awake, alert and oriented. There is no evidence of alcohol withdrawal. The patient stated that he had lost his job back in August and lost his insurance and has not been able to afford his medication for the past 7 months. I will resume his essential medications for his diabetes, hypertension coronary artery disease, and have discussed with 7th grade social studies teacher to try to get him some help. Most of the medications are on the $4.00 formulary at [facility] or [facility]. I encouraged the patient to stop smoking and drinking and save some money for his medications instead. Overall, he is doing well. He has no complaint. We will plan to discharge the patient home today. Encouraged him to find a PCP so he can follow up for his chronic medical issues. PHYSICAL EXAMINATION: Vital Signs: At discharge, his vital signs were a blood pressure of 128/77, pulse of 53, respiration 18, temperature 98.3 degrees, sat of 99% on nasal cannula. General Appearance: Well-developed, well-nourished white male, in no acute distress. HEENT: Anicteric. Clear conjunctivae. Neck: Supple. No JVD. No bruit. Cardiovascular: S1, S2. Slightly bradycardic. PLAN: We will discharge the patient home. CONDITION: Stable and improving. ACTIVITY: As tolerated. FOLLOWUP: The patient needs to find himself a PCP so he can follow up on a regular basis. I gave him 3 refills on his medication, so that should give him 3 months to find someone. TIME SPENT: Total time discharging this patient is 35 minutes.
== END 2017-03-12 14:10 | disposition home or self-care (01) ==
LOC: P.ED 23:44 → SUATTDRO 03-10 04:51 → P.ICU 03-10 04:51 → P.MEDSURG 03-11 18:10
PROVIDERS: ATTEND Internal Medicine